=== PATIENT | female | born 1995 | race Two or more races ===

== ENCOUNTER 2019-12-13 16:39 | Emergency (ER) | payer SELFPAY ==
--- NOTE | 2019-12-13 17:27 | ER Document Report ---
ED Medical Screen (RME) - General Chief Complaint: Laceration Stated Complaint: FINGER LACERATION Time Seen by Provider: 12/13/19 17:24 Information source: Patient Notes: This is a 24-year-old female who was slicing kris and sustained a near complete avulsion of her left hand index finger - HPI Onset: Just prior to arrival - Related Data Allergies/Adverse Reactions: No Known Allergies Allergy (Verified 12/13/19 17:22) Past Medical History - Social History Frequency of alcohol use: None Drug Abuse: None Physical Exam - Vital signs Vitals: Temp Pulse Resp BP Pulse Ox 98.6 F 96 16 132/80 H 100 12/13/19 17:02 12/13/19 17:02 12/13/19 17:02 12/13/19 17:02 12/13/19 17:02 Course - Vital Signs Vital signs: Temp Pulse Resp BP Pulse Ox 98.6 F 96 16 132/80 H 100 12/13/19 17:02 12/13/19 17:02 12/13/19 17:02 12/13/19 17:02 12/13/19 17:02
[2019-12-13] MEDS ORDERED: LIDOCAINE 1% INJ (10 MG/ML) 10 ML MDV INJ ONE (19:58)
--- NOTE | 2019-12-13 20:56 | ER Document Report ---
ED General - General Chief Complaint: Laceration Stated Complaint: FINGER LACERATION Time Seen by Provider: 12/13/19 17:24 Primary Care Provider: WING DAVIS JR, DO [ACTIVE PROVISIONAL STAFF] - Follow up as needed DEREK RIOS MD [ACTIVE STAFF] - Follow up as needed Mode of Arrival: Ambulatory Information source: Patient - HPI Onset: Just prior to arrival Onset/Duration: Sudden Quality of pain: Sharp, Throbbing Severity: Moderate Pain Level: 3 Associated symptoms: Other - numbness of left 2nd finger tip, damage to left 2nd finger nail Exacerbated by: Movement - of her second finger Relieved by: Remaining still Similar symptoms previously: No Recently seen / treated by doctor: No Notes: 24 year old female with no significant PMH here for evaluation and treatment after she accidentally cut her left 2nd finger tip and nail while cutting kris with a kitchen knife. The patient says she washed out the area the best she could. The patient says her tetanus is up to date. The patient has some numbness and discoloration of the finger pad/flap that was cut. - Related Data Allergies/Adverse Reactions: No Known Allergies Allergy (Verified 12/13/19 17:22) Past Medical History - General Information source: Patient - Social History Smoking Status: Never Smoker Frequency of alcohol use: None Drug Abuse: None Family History: Reviewed & Not Pertinent Patient has suicidal ideation: No Patient has homicidal ideation: No Review of Systems - Review of Systems Constitutional: No symptoms reported EENT: No symptoms reported Cardiovascular: No symptoms reported Respiratory: No symptoms reported Gastrointestinal: No symptoms reported Genitourinary: No symptoms reported Female Genitourinary: No symptoms reported Musculoskeletal: No symptoms reported Skin: Other - laceration of 2nd digit finger pad including through the distal portion of the nail Hematologic/Lymphatic: No symptoms reported Neurological/Psychological: No symptoms reported -: Yes All other systems reviewed and negative Physical Exam - Vital signs Vitals: Temp Pulse Resp BP Pulse Ox 98.6 F 96 16 132/80 H 100 12/13/19 17:02 12/13/19 17:02 12/13/19 17:02 12/13/19 17:02 12/13/19 17:02 - Notes Notes: GENERAL: Well-appearing, well-nourished and in no acute distress. HEAD: Atraumatic, normocephalic. EYES: Pupils equal round and reactive to light, extraocular movements intact, sclera anicteric, conjunctiva are normal. ENT: External ears normal, nares patent, oropharynx clear without exudates. Moist mucous membranes. NECK: Normal range of motion, supple without lymphadenopathy or JVD. LUNGS: Breath sounds clear to auscultation bilaterally and equal. No wheezes rales or rhonchi. HEART: Regular rate and rhythm without murmurs, rubs or gallops. ABDOMEN: Soft, nontender, normoactive bowel sounds. No guarding, no rebound. No masses appreciated. EXTREMITIES: Left 2nd digit with linear laceration through finger pad which involves the nail itself. The laceration created a ski flap with a portion of the nail attached to the skin/tissue. Skin flap is pale/dusky in color. Normal range of motion, no pitting or edema. No clubbing or cyanosis. NEUROLOGICAL: Cranial nerves II through XII grossly intact. Normal speech, normal gait. PSYCH: Normal mood, normal affect. SKIN: Warm, Dry, normal turgor, no rashes or lesions noted. Course - Re-evaluation Re-evalutation: 12/13/19 21:02 The patient had her finger laceration/nail avulsion repaired by me with 6 sutures of 5.0 prolene. Patient told to follow up with her PCP or an Orthopedic Surgeon for suture removed in 7-10 days. Patient told to follow up with Orthopedics if she has persistent numbness, tingling, or finger issues. Will pace patient on prophylactic antibiotics Keflex) since she cut her finger tip fairly deep. Patient assures me her tetanus is up to date in the last 5 years. - Vital Signs Vital signs: Temp Pulse Resp BP Pulse Ox 98.6 F 96 16 132/80 H 100 12/13/19 17:02 12/13/19 17:02 12/13/19 17:02 12/13/19 17:02 12/13/19 17:02 Procedures - Laceration/Wound Repair Left Finger 2nd digit Wound length (cm): 1.5 Wound's Depth, Shape: Linear, Flap, Nail-avulsed Anesthetic type: 1% Lidocaine Volume Anesthetic (mLs): 2 Wound explored: Clean Wound Repaired With: Sutures Suture Size/Type: 5:0, Prolene Number of Sutures: 6 Complications: No Notes: 12/13/19 21:09 3 sutures placed in pad of left 2nd finger and 3 sutures placed in the avulsed nail of the left 2nd finger. Discharge - Discharge Clinical Impression: Finger laceration Qualifiers: Encounter type: initial encounter Finger: index finger Damage to nail status: with damage Foreign body presence: without foreign body Laterality: left Qualified Code(s): S61.311A - Laceration without foreign body of left index finger with damage to nail, initial encounter Nail avulsion, finger Qualifiers: Encounter type: initial encounter Qualified Code(s): S61.309A - Unspecified open wound of unspecified finger with damage to nail, initial encounter Condition: Stable Disposition: HOME, SELF-CARE Instructions: Avulsed Nail ([facility]), Laceration Care ([facility]) Additional Instructions: Keep your finger wound covered in antibiotic ointment until it is completely healed. Have the sutures in the pad of of your finger removed in 7-10 days. You allow the sutures in your nail to grow out but they can be removed as well if they cause you too much pain. Use tylenol and motrin for pain. Take oral antibiotics as prescribed for prophylaxis. Follow up with an Orthopedic Surgeon if you continue to have numbness and tingling or finger problems. Prescriptions: Cephalexin Monohydrate [Keflex 500 mg Capsule] 500 mg PO Q12H 7 Days #14 capsule Referrals: DEREK RIOS MD [ACTIVE STAFF] - Follow up as needed WING DAVIS JR, [ACTIVE PROVISIONAL STAFF] - Follow up as needed
[2019-12-13 21:12] VITALS: BP 128/78
== END 2019-12-13 21:10 | disposition home or self-care (01) ==
LOC: ER 16:39
PROC: 0HQGXZZ Repair Left Hand Skin, External Approach (ICD-10-PCS; principal; 2019-12-13)
DX: S61.311A Laceration without foreign body of left index finger with damage to nail, initial encounter (principal); R20.0 Anesthesia of skin; W26.0XXA Contact with knife, initial encounter; Y93.G1 Activity, food preparation and clean up
CPT/HCPCS: 99282